=== PATIENT | male | born 1980 | race Caucasian/White ===

== ENCOUNTER 2016-11-29 12:40 | Emergency (ER) | payer OTHER ==
[~2016-11-29] VITALS: Ht 152.4 cm; Wt 170.0 kg
[2016-11-29 12:43] VITALS: Ht 152.4 cm; Wt 170.0 kg
[2016-11-29] MEDS ORDERED: LIDOCAINE 1% (MDV) 20 ML INJ SC ONE (14:00)
--- NOTE | 2016-11-29 14:23 | ERD ---
ER Documentation Chief Complaint Date/Time DATE: 11/29/16 TIME: 14:21 Chief Complaint left leg varicous vein bleeding HPI 36-year-old male, history of obesity presents with bleeding left lower leg varicose vein after he actually cut his leg against a wire. Patient states that there is leg that is coming out actively. He states that his last tetanus shot was within the last 2 years. ROS All systems reviewed and are negative except as per history of present illness. PMhx/Soc Medical and Surgical Hx: pt denies Medical Hx, pt denies Surgical Hx Hx Alcohol Use: No Hx Substance Use: No Hx Tobacco Use: No Smoking Status: Never smoker Physical Exam Vitals Vital Signs Date Time Temp Pulse Resp B/P Pulse Ox O2 Delivery O2 Flow Rate FiO2 11/29/16 12:43 98.1 82 20 154/82 99 Physical Exam General: Well-developed, well-nourished. The patient appears in no acute distress. HEENT: Head is normocephalic, atraumatic. No scleral icterus. Neck: Supple. Nontender. Lungs: Clear to auscultation. Normal air movement. Heart: Regular rate and rhythm. S1 and S2 are normal. No murmurs, gallops, or rubs. Abdomen: Nondistended. Extremities: Left lower leg has active bleeding from a varicose vein, bleeding is nonpulsatile. Neurologic: Alert and oriented 3. No focal deficits. Normal speech and gait. Skin: Normal turgor. No rash or lesions. Results 24 hrs Current Medications Medications (Trade) Dose Ordered Sig/Colin Route PRN Reason Start Time Stop Time Status Last Admin Dose Admin Lidocaine (Xylocaine 1% (Mdv) 20 ml) 20 ml ONCE ONCE SC 11/29/16 14:00 11/29/16 14:01 DC Acetaminophen/ Hydrocodone Bitart ([place] (10/325)) 1 tab ONCE ONCE PO 11/29/16 15:00 11/29/16 15:01 DC 11/29/16 15:22 Ondansetron HCl (Zofran Odt) 4 mg ONCE STAT ODT 11/29/16 14:38 11/29/16 14:39 DC 11/29/16 15:22 Procedures/MDM Varicose vein repair by me: Patient was verbally consented Location: Left lower leg Tendon/Joint/Nerves: No injury Technique: 2 figure of 8 sutures were placed, hemostasis achieved. Sutures are placed, clean dressing was applied. An Darian bandage was applied as well. We observe the patient, he did not experience any further bleeding. He was ambulatory emergency department, the wound was rechecked without any complications and he is stable for discharge. Patient's bleeding was easily controlled in the department and there is no indication of anemia. No evidence of compartment syndrome, neurologic injury, vascular injury, open joint, tendon laceration, or foreign body. Patient is appropriate for outpatient follow up. 48 hour wound check. Scar minimization instructions given. Medical decision makin-year-old male comes in with a bleeding varicose vein that was repaired with sutures. Hemostasis was achieved. Patient tolerated procedure well, was hemodynamically stable and is appropriate for outpatient management. The case was reviewed and discussed with Dr. Benton who agrees with the plan of care. Departure Diagnosis: Primary Impression: Bleeding from varicose vein Condition: MAYA Rondon PA-C Nov 29, 2016 14:23
[2016-11-29] MEDS ORDERED: ONDANSETRON (ODT) 4 MG TAB ODT STA (14:38)
[2016-11-29] MEDS ORDERED: HYDROCODONE/APAP (10/325) TAB PO ONE (15:00)
[2016-11-29] MEDS ORDERED: HYDR-906 PO (15:57)
== END 2016-11-29 16:02 | disposition home or self-care (01) ==
LOC: FTE 12:40
DX: I83.899 Varicose veins of unspecified lower extremity with other complications (principal); E66.9 Obesity, unspecified
CPT/HCPCS: 12001; Z7502; Z7610

== ENCOUNTER 2016-12-06 17:10 | Emergency (ER) | payer OTHER ==
[~2016-12-06] VITALS: Ht 175.3 cm; Wt 170.0 kg
[~2016-12-06 17:10] MED LIST: HYDR-906 PO
[2016-12-06 17:16] VITALS: Ht 175.3 cm; Wt 170.0 kg
[2016-12-06] MEDS ORDERED: SULF1TAB31 PO (18:49)
[2016-12-06] MEDS ORDERED: CEPH-443 PO (18:49)
[2016-12-06] MEDS ORDERED: IBUP800T25 PO (18:50)
--- NOTE | 2016-12-06 18:52 | ERD ---
ER Documentation Chief Complaint Date/Time DATE: 12/06/16 TIME: 18:51 Chief Complaint rupture vein, sutures placed, per wound more red now. HPI This 36-year-old male presents for recheck. 1 week ago he had a suture placed for bleeding varicose vein. May be some redness of the wound and increased pain over the last few days. ROS All systems reviewed and are negative except as per history of present illness. Medications Home Meds Active Scripts Ibuprofen* (Motrin*) 800 Mg Tab, 800 MG PO Q6, #15 TAB Prov:CLARISSA WILSON MD 12/06/16 Sulfamethoxazole/Trimethoprim* (Bactrim Ds* Tablet) 1 Each Tablet, 1 TAB PO BID for 7 Days, #14 TAB Prov:CLARISSA WILSON MD 12/06/16 Cephalexin* (Keflex*) 500 Mg Capsule, 500 MG PO QID for 7 Days, CAP Prov:CLARISSA WILSON MD 12/06/16 Hydrocodone/Acetaminophen ([place] 5-325 Tablet) 1 Each Tablet, 1 TAB PO Q6H Y for PAIN, #10 TAB Prov:MAYA WALKER PA-C 11/29/16 Allergies Allergies: Coded Allergies: No Known Allergy (Unverified , 12/06/16) PMhx/Soc Hx Alcohol Use: No Hx Substance Use: No Hx Tobacco Use: No Physical Exam Vitals Vital Signs Date Time Temp Pulse Resp B/P Pulse Ox O2 Delivery O2 Flow Rate FiO2 12/06/16 17:16 98.8 85 20 131/79 96 Physical Exam Const: []Alert, [id number]. Morbidly obese. Head: Atraumatic Eyes: Normal Conjunctiva ENT: Normal External Ears, Nose and Mouth. Neck: Full range of motion..~ No meningismus. Resp: Clear to auscultation bilaterally Cardio: Regular rate and rhythm, no murmurs Abd: Soft, non tender, non distended. Normal bowel sounds Skin: No petechiae or rashes. On the lateral aspect left calf there is a suture in place. There is some dried blood and some redness and slight oozing which is yellow and honey crusted of approximately 2 cm. There is no calf swelling or Homans sign or significant streaking or induration. Back: No midline or flank tenderness Ext: No cyanosis, or edema Neur: Awake and alert Psych: Normal Mood and Affect Results 24 hrs Current Medications Medications (Trade) Dose Ordered Sig/Colin Route PRN Reason Start Time Stop Time Status Last Admin Dose Admin Cephalexin (Keflex) 500 mg ONCE ONCE PO 12/06/16 19:00 12/06/16 19:01 Acetaminophen (Tylenol Tab) 650 mg ONCE ONCE PO 12/06/16 19:00 12/06/16 19:01 Procedures/MDM 1 suture removed which appears to be an absorbable. Patient presents for suture removal for bleeding varicose vein. There is no active bleeding. He appears to have a mild wound infection. He was given Bactrim and Keflex will be treated with Bactrim and Keflex and ibuprofen and instructions for 2 day recheck for worsening redness and recheck of infection. She will return sooner for fevers, worsening redness, new worsening symptoms or with in 2 days as directed. We will reevaluate potential additional suture removal and recheck. It is not easily visible and digging into the wound may cause bleeding so further dissection was deferred for now. There is no evidence of DVT or sepsis. Departure Diagnosis: Primary Impression: Cellulitis Site of cellulitis: extremity Site of cellulitis of extremity: lower extremity Laterality: left Qualified Code: L03.116 - Cellulitis of left lower extremity Additional Impression: Encounter for removal of sutures Condition: Stable Patient Instructions: Cellulitis, Suture Removal, No Complication Additional Instructions: Recheck in 2-3 days, sooner for fevers, worsening redness, new symptoms. CLARISSA WILSON MD Dec 06, 2016 18:52
[2016-12-06] MEDS ORDERED: CEPHALEXIN 500 MG CAP PO ONE (19:00)
[2016-12-06] MEDS ORDERED: ACETAMINOPHEN 325 MG TAB PO ONE (19:00)
[2016-12-06 20:13] VITALS: BP 131/88; PULSE 76; RESP 20
== END 2016-12-06 21:13 | disposition home or self-care (01) ==
LOC: FTE 17:10
DX: L03.116 Cellulitis of left lower limb (principal)
CPT/HCPCS: Z7502; Z7610; 99284

== ENCOUNTER 2017-01-03 07:56 | Emergency (ER) | payer OTHER ==
[~2017-01-03] VITALS: Ht 175.3 cm; Wt 172.0 kg
[~2017-01-03 07:56] MED LIST changes: +CEPH-443 PO; +IBUP800T25 PO; +SULF1TAB31 PO
[2017-01-03 07:59] VITALS: Ht 175.3 cm; Wt 172.0 kg
--- NOTE | 2017-01-03 08:19 | ERD ---
ER Documentation Chief Complaint Date/Time DATE: 01/03/17 TIME: 08:18 Chief Complaint FOR WOUND CHECK ON LT LEG HPI This 36-year-old male presents for evaluation for suture removal in the left lateral calf. He had a bleeding varicose vein sutured 2 weeks ago. There is no history of fevers, calf swelling, redness, additional symptoms. Patient is morbidly obese. ROS All systems reviewed and are negative except as per history of present illness. Medications Home Meds Active Scripts Ibuprofen* (Motrin*) 800 Mg Tab, 800 MG PO Q6, #15 TAB Prov:CLARISSA WILSON MD 12/06/16 Sulfamethoxazole/Trimethoprim* (Bactrim Ds* Tablet) 1 Each Tablet, 1 TAB PO BID for 7 Days, #14 TAB Prov:CLARISSA WILSON MD 12/06/16 Cephalexin* (Keflex*) 500 Mg Capsule, 500 MG PO QID for 7 Days, CAP Prov:CLARISSA WILSON MD 12/06/16 Hydrocodone/Acetaminophen ([place] 5-325 Tablet) 1 Each Tablet, 1 TAB PO Q6H Y for PAIN, #10 TAB Prov:MAYA WALKER PA-C 11/29/16 Allergies Allergies: Coded Allergies: No Known Allergy (Unverified , 01/03/17) PMhx/Soc Medical and Surgical Hx: pt denies Medical Hx, pt denies Surgical Hx Hx Alcohol Use: No Hx Substance Use: No Hx Tobacco Use: No Smoking Status: Never smoker Physical Exam Vitals Vital Signs Date Time Temp Pulse Resp B/P Pulse Ox O2 Delivery O2 Flow Rate FiO2 01/03/17 07:59 98.1 89 18 139/86 98 Physical Exam Const: [] Alert, not ill-appearing. Obese. Head: Atraumatic Eyes: Normal Conjunctiva ENT: Normal External Ears, Nose and Mouth. Neck: Full range of motion..~ No meningismus. Resp: Clear to auscultation bilaterally Cardio: Regular rate and rhythm, no murmurs Abd: Soft, non tender, non distended. Normal bowel sounds Skin: No petechiae or rashes Back: No midline or flank tenderness Ext: No cyanosis, or edema suture in place in the lateral left calf. No erythema, warmth, active bleeding, fluctuance. Neur: Awake and alert Psych: Normal Mood and Affect Procedures/MDM Suture removed without complications. Wound was dressed. Patient was discharged home with instructions to return for redness, fevers, new worsening symptoms, recurrent bleeding with primary care doctor. No evidence of DVT, cellulitis, abscess, additional complications due to patient's presenting complaints appreciable. Departure Diagnosis: Primary Impression: Encounter for removal of sutures Condition: Stable Patient Instructions: Suture Removal, No Complication Additional Instructions: Cheque otro vez con green doctor primario en el proximo herrera or regresa para mas o nueva simptomas. CLARISSA WILSON MD Jan 03, 2017 08:19
== END 2017-01-03 08:52 | disposition home or self-care (01) ==
LOC: FTE 07:56
DX: Z48.02 Encounter for removal of sutures (principal)
CPT/HCPCS: 99281

== ENCOUNTER 2018-08-17 17:11 | Emergency (ER) | payer SELFPAY ==
[~2018-08-17] VITALS: Ht 170.2 cm; Wt 136.0 kg
[~2018-08-17 17:11] MED LIST changes: +HYDR-4011 PO; -HYDR-906 PO; -IBUP800T25 PO; +IBUP800T48 PO
[2018-08-17 17:16] VITALS: Ht 170.2 cm; Wt 136.0 kg
[2018-08-17] MEDS ORDERED: SILVER NITRATE SWAB TOP ONE (18:30)
--- NOTE | 2018-08-17 19:15 | ERD ---
ER Documentation Chief Complaint Chief Complaint bleeding from lt leg vericose vein HPI Patient 38-year-old male presenting to ER for bleeding leg ulcer ROS All systems reviewed and are negative except as per history of present illness. Medications Home Meds Active Scripts Cephalexin* (Keflex*) 500 Mg Capsule, 500 MG PO QID for 5 Days, CAP Prov:TERI QUESADA PA-C 08/17/18 Ibuprofen* (Motrin*) 800 Mg Tab, 800 MG PO Q6, #15 TAB Prov:CLARISSA WILSON MD 12/06/16 Sulfamethoxazole/Trimethoprim* (Bactrim Ds* Tablet) 1 Each Tablet, 1 TAB PO BID for 7 Days, #14 TAB Prov:CLARISSA WILSON MD 12/06/16 Cephalexin* (Keflex*) 500 Mg Capsule, 500 MG PO QID for 7 Days, CAP Prov:CLARISSA WILSON MD 12/06/16 Hydrocodone/Acetaminophen ([place] 5-325 Tablet) 1 Each Tablet, 1 TAB PO Q6H PRN for PAIN, #10 TAB Prov:MAYA WALKER PA-C 11/29/16 Allergies Allergies: Coded Allergies: No Known Allergy (Unverified , 01/03/17) PMhx/Soc Medical and Surgical Hx: pt denies Medical Hx, pt denies Surgical Hx Hx Alcohol Use: No Hx Substance Use: No Hx Tobacco Use: No Smoking Status: Never smoker FmHx Family History: coronary disease; No diabetes, No other Physical Exam Vitals Vital Signs Date Temp Pulse Resp B/P (MAP) Pulse Ox O2 O2 Flow FiO2 Time Delivery Rate 08/17/18 97.9 81 18 133/75 99 Room Air 19:45 (94) 08/17/18 97.8 90 18 138/71 99 17:16 (93) Physical Exam Const: No acute distress Resp: Clear to auscultation bilaterally Cardio: Regular rate and rhythm, no murmurs Skin: No petechiae or rashes Ext: No cyanosis, or edema, patient has small less than 1 cm varicose vein that is actively bleeding, bleeding was controlled with direct pressure patient has good CMS Results 24 hrs Current Medications Medications Dose Sig/Colin Start Time Status Last (Trade) Ordered Route PRN Stop Time Admin Dose Reason Admin Silver 1 stick ONCE ONCE 08/17/18 DC Nitrate TOP 18:30 (Silver 08/17/18 18:31 Nitrate Swabs) Procedures/MDM ED course: Bleeding was controlled with direct pressure. Wound was irrigated thoroughly with normal saline and Betadine. Wound was anesthetized with lidocaine with epi. Patient received 4-0 nylon sutures. 3 [id number] knots were placed. Bleeding was controlled with suture placement. Patient's leg was cleaned and bandaged up. Patient was advised he needs to follow-up in 2 days for wound check and have sutures removed in 5 to 7 days. The patient was stable throughout the ED course. The patient and/or family informed of laboratory and diagnostic imaging results throughout the ED course. Procedures: Lidocaine with epi Wound interrogation 3 figure 8 sutures were placed on the left lateral leg and sterile field. 4-0 nylon sutures Medications given in ER: None Medical decision makin-year-old male presenting with active bleeding venous ulcer. Patient was seen in the ER few months ago for the same issue. Patient denies fever chills body aches. Patient controlled the bleeding with an Darian bandage prior to come to ER. The wound was inspected with no signs of erythema, swelling, cellulitis. The patient's bleeding was controlled with direct pressure and the wound was secured with 3 stitches. The patient's leg was bandaged. The patient was advised to follow-up in 2 days for wound check. Patient was advised to follow-up in 5 to 7 days for suture removal. The patient denies any dizziness lightheaded or feeling as he is going to pass out. The patient has good color to his skin. The patient is hemodynamically stable. At this time I have low suspicion for any neurovascular injury patient had good intact CMS prior to stitches and patient was assessed post suture placement and patient had no neurovascular de ficits. At this time I have low suspicion for compartment syndrome cellulitis neurovascular injury tendon or muscle injury fracture or infection. Patient was advised that he needs to follow-up for long-term care with a specialist. No tetanus was given because the patient received a tetanus shot 2 months ago. The patient was sent home with antibiotics. Patient was advised the importance of taking antibiotics and common side effects such as diarrhea and upset stomach. Patient had no questions upon discharge. The patient was advised to come back if bleeding occurs again or he experiences pain swelling discoloration or irritation to the left leg. Prescription for home: Keflex Discharge: At this time, patient is stable for discharge and outpatient management. I have instructed the patient to follow-up with his\her primary care physician in 1 to 2 days. I have discussed with the patient the possibility of needing to see a specialist for further work-up and imaging studies if symptoms persist. I have instructed the patient to promptly return to the ER for any new or worsening symptoms including increased pain, fever, nausea, vomiting, weakness or LOC. The patient and\or family expressed understanding of and agreement with this plan. All questions were answered. Home care instructions were provided. Disclaimer: Inadvertent spelling and grammatical errors are likely due to EHR\dictation software use and do not reflect on the overall quality of patient care. Also, please note that the electronic time recorded on the note does not necessarily reflect the actual time of the patient encounter. Departure Diagnosis: Primary Impression: Venous stasis ulcer Venous stasis ulcer site: calf Varicose vein presence: unspecified whether present Laterality: left Non-pressure ulcer stage: unspecified non- pressure ulcer stage Qualified Codes: I83.022 - Varicose veins of left lower extremity with ulcer of calf; L97.229 - Non-pressure chronic ulcer of left calf with unspecified severity Condition: Stable TERI QUESADA PA-C August 17, 2018 19:15
[2018-08-17] MEDS ORDERED: CEPH-443 PO (19:28)
[2018-08-17 19:45] VITALS: BP 133/75; PULSE 81; RESP 18
== END 2018-08-17 19:45 | disposition home or self-care (01) ==
LOC: FTE 17:11
DX: I83.022 Varicose veins of left lower extremity with ulcer of calf (principal); L97.229 Non-pressure chronic ulcer of left calf with unspecified severity

== ENCOUNTER 2018-08-20 08:16 | Emergency (ER) | payer SELFPAY ==
[~2018-08-20] VITALS: Wt 110.0 kg
[2018-08-20 08:18] VITALS: BP 154/85; PULSE 76; RESP 18
--- NOTE | 2018-08-20 09:13 | ERD ---
ER Documentation Chief Complaint Chief Complaint left leg wound check HPI This is a Serbian-speaking 38-year-old male with history of venous stasis ulcers who presents to the ED for wound recheck of his left lower leg laceration repair. Patient was seen here on August 17, 2018 for bleeding of his left lower leg varicose veins. 3 sutures were placed and patient was told to return today for wound recheck. Wound is healing well. No bleeding, discharge, erythema, pain, fevers or chills. No new injuries. No other complaints. He is currently on his second day of Keflex. ROS All systems reviewed and are negative except as per history of present illness. Medications Home Meds Active Scripts Cephalexin* (Keflex*) 500 Mg Capsule, 500 MG PO QID for 5 Days, CAP Prov:TERI QUESADA PA-C 08/17/18 Ibuprofen* (Motrin*) 800 Mg Tab, 800 MG PO Q6, #15 TAB Prov:CLARISSA WILSON MD 12/06/16 Sulfamethoxazole/Trimethoprim* (Bactrim Ds* Tablet) 1 Each Tablet, 1 TAB PO BID for 7 Days, #14 TAB Prov:CLARISSA WILSON MD 12/06/16 Cephalexin* (Keflex*) 500 Mg Capsule, 500 MG PO QID for 7 Days, CAP Prov:CLARISSA WILSON MD 12/06/16 Hydrocodone/Acetaminophen ([place] 5-325 Tablet) 1 Each Tablet, 1 TAB PO Q6H PRN for PAIN, #10 TAB Prov:MAYA WALKER PA-C 11/29/16 Allergies Allergies: Coded Allergies: No Known Allergy (Unverified , 01/03/17) PMhx/Soc Medical and Surgical Hx: pt denies Medical Hx, pt denies Surgical Hx Hx Alcohol Use: No Hx Substance Use: No Hx Tobacco Use: No FmHx Family History: No diabetes Physical Exam Vitals Vital Signs Date Temp Pulse Resp B/P (MAP) Pulse Ox O2 O2 Flow FiO2 Time Delivery Rate 08/20/18 98.3 76 18 154/85 99 08:18 (108) Physical Exam Const: No acute distress Head: Atraumatic Eyes: Normal Conjunctiva ENT: Normal External Ears, Nose and Mouth. Neck: Full range of motion. No meningismus. Skin: No petechiae or rashes Ext: + Well-healing 1 cm wound to left lower extremity with [address], no surrounding erythema, fluctuance, or induration. Multiple varicose veins appreciated. DP/PT pulses intact. Cap refill less than 2 seconds. Right lower extremity normal. Neur: Awake and alert Psych: Normal Mood and Affect Procedures/MDM 38-year-old male with peripheral vascular disease and varicose veins presents for wound recheck. He was seen here 3 days ago for bleeding varicose vein which was sutured with 3 nylon stitches. Wound is healing well. He has no evidence of ischemic necrosis, cellulitis, abscess, sepsis or other deep space infection. Patient was told to return in 7 days for suture removal. Strict return precautions were discussed. Blood Pressure Assessment: Patient's blood pressure was elevated (>120/80) but appears stable without evidence of hypertension emergency or urgency. The patient was counseled about the risks of hypertension and urged to pursue outpatient monitoring and therapy within a week with their primary care physician. Departure Diagnosis: Primary Impression: Venous stasis ulcer Venous stasis ulcer site: unspecified site Varicose vein presence: with varicose veins Non-pressure ulcer stage: unspecified non-pressure ulcer stage Qualified Codes: I83.009 - Varicose veins of unspecified lower extremity with ulcer of unspecified site; L97.909 - Non-pressure chronic ulcer of unspecified part of unspecified lower leg with unspecified severity Additional Impression: Encounter for wound re-check Condition: Stable Patient Instructions: Wound Check, Lac F/U (No Infection) Referrals: [facility] YOU HAVE RECEIVED A MEDICAL SCREENING EXAM AND THE RESULTS INDICATE THAT YOU DO NOT HAVE A CONDITION THAT REQUIRES URGENT TREATMENT IN THE EMERGENCY DEPARTMENT. FURTHER EVALUATION AND TREATMENT OF YOUR CONDITION CAN WAIT UNTIL YOU ARE SEEN IN YOUR DOCTORS OFFICE WITHIN THE NEXT 1-2 DAYS. IT IS YOUR RESPONSIBILITY TO MAKE AN APPOINTMENT FOR FOLOW-UP CARE. IF YOU HAVE A PRIMARY DOCTOR --you should call your primary doctor and schedule and appointment IF YOU DO NOT HAVE A PRIMARY DOCTOR YOU CAN CALL OUR PHYSICIAN REFERRAL HOTLINE AT . IF YOU CAN NOT AFFORD TO SEE A PHYSICIAN YOU CAN CHOSE FROM THE FOLLOWING [facility] INSTITUTIONS: [facility] [id number] [place] [address] [facility] [address] [place] [address] [facility] [address] [address] [facility]CIALT[facility] Additional Instructions: Return in 7 days for removal of your stitches. Monitor for any worsening redness, pain, discharge, fevers, chills. Return here sooner for any of the aforementioned reasons. GLADYS العلي PA-C Aug 20, 2018 09:13
== END 2018-08-20 09:12 | disposition home or self-care (01) ==
LOC: FTE 08:16
DX: I83.029 Varicose veins of left lower extremity with ulcer of unspecified site (principal); L97.929 Non-pressure chronic ulcer of unspecified part of left lower leg with unspecified severity
CPT/HCPCS: 99281

== ENCOUNTER 2018-08-27 15:04 | Emergency (ER) | payer SELFPAY ==
[~2018-08-27] VITALS: Ht 167.6 cm; Wt 145.0 kg
[2018-08-27 15:11] VITALS: Ht 167.6 cm; Wt 145.0 kg
--- NOTE | 2018-08-27 15:39 | ERD ---
ER Documentation Chief Complaint Chief Complaint FOR SUTURE REMOVAL ON LT LEG HPI Patient is a 38-year-old male who presents the ER for suture removal. Patient was seen here in 08-17-18 for a bleeding varicose vein. 3 sutures were placed to the affected area. Patient denies any fevers, chills, nausea, vomiting, redness or swelling to the affected site. Patient did complete course of antibiotics. ROS All systems reviewed and are negative except as per history of present illness. Medications Home Meds Active Scripts Cephalexin* (Keflex*) 500 Mg Capsule, 500 MG PO QID for 5 Days, CAP Prov:TERI QUESADA PA-C 08/17/18 Ibuprofen* (Motrin*) 800 Mg Tab, 800 MG PO Q6, #15 TAB Prov:CLARISSA WILSON MD 12/06/16 Sulfamethoxazole/Trimethoprim* (Bactrim Ds* Tablet) 1 Each Tablet, 1 TAB PO BID for 7 Days, #14 TAB Prov:CLARISSA WILSON MD 12/06/16 Cephalexin* (Keflex*) 500 Mg Capsule, 500 MG PO QID for 7 Days, CAP Prov:CLARISSA WILSON MD 12/06/16 Hydrocodone/Acetaminophen ([place] 5-325 Tablet) 1 Each Tablet, 1 TAB PO Q6H PRN for PAIN, #10 TAB Prov:MAYA WALKER PA-C 11/29/16 Allergies Allergies: Coded Allergies: No Known Allergy (Unverified , 01/03/17) PMhx/Soc Medical and Surgical Hx: pt denies Medical Hx, pt denies Surgical Hx Hx Alcohol Use: No Hx Substance Use: No Hx Tobacco Use: No Smoking Status: Never smoker FmHx Family History: No diabetes Physical Exam Vitals Vital Signs Date Temp Pulse Resp B/P (MAP) Pulse Ox O2 O2 Flow FiO2 Time Delivery Rate 08/27/18 97.8 96 18 134/65 100 15:11 (88) Physical Exam GENERAL: Well-developed, well-nourished male. Appears in no acute distress. HEAD: Normocephalic, atraumatic. EYES: Pupils are equally reactive bilaterally. EOMs grossly intact. No conjunct ival erythema. EXTREMITIES: Equal pulses bilaterally. No peripheral clubbing, cyanosis or edema. No unilateral leg swelling. NEUROLOGIC: Alert and oriented. Moving all four extremities without any difficulty. Normal speech. Steady gait. SKIN: 3 sutures noted on the lateral aspect of the patient's left leg. No surrounding erythema, warmth, streaking. Procedures/MDM Suture Removal by me: 3 Sutures removed with tweezers and scissors without incident. Wound shows no evidence of infection, foreign body, neurologic injury, vascular injury, open joint or tendon laceration. Patient to follow up PRN. Departure Diagnosis: Primary Impression: Encounter for removal of sutures Condition: Fair Patient Instructions: Staple Removal, No Complication Referrals: COMM[facility] YOU HAVE RECEIVED A MEDICAL SCREENING EXAM AND THE RESULTS INDICATE THAT YOU DO NOT HAVE A CONDITION THAT REQUIRES URGENT TREATMENT IN THE EMERGENCY DEPARTMENT. FURTHER EVALUATION AND TREATMENT OF YOUR CONDITION CAN WAIT UNTIL YOU ARE SEEN IN YOUR DOCTORS OFFICE WITHIN THE NEXT 1-2 DAYS. IT IS YOUR RESPONSIBILITY TO MAKE AN APPOINTMENT FOR FOLOW-UP CARE. IF YOU HAVE A PRIMARY DOCTOR --you should call your primary doctor and schedule an appointment IF YOU DO NOT HAVE A PRIMARY DOCTOR YOU CAN CALL OUR PHYSICIAN REFERRAL HOTLINE AT IF YOU CAN NOT AFFORD TO SEE A PHYSICIAN YOU CAN CHOSE FROM THE FOLLOWING [facility] [address] [facility]. [facility] [address] [facility]. [facility] [address] [facility]. [facility] [address] [facility] [facility] [address] [facility]. [facility]. [address] [facility]. [facility] YOU HAVE RECEIVED A MEDICAL SCREENING EXAM AND THE RESULTS INDICATE THAT YOU DO NOT HAVE A CONDITION THAT REQUIRES URGENT TREATMENT IN THE EMERGENCY DEPARTMENT. FURTHER EVALUATION AND TREATMENT OF YOUR CONDITION CAN WAIT UNTIL YOU ARE SEEN IN YOUR DOCTORS OFFICE WITHIN THE NEXT 1-2 DAYS. IT IS YOUR RESPONSIBILITY TO MAKE AN APPOINTMENT FOR FOLOW-UP CARE. IF YOU HAVE A PRIMARY DOCTOR --you should call your primary doctor and schedule and appointment IF YOU DO NOT HAVE A PRIMARY DOCTOR YOU CAN CALL OUR PHYSICIAN REFERRAL HOTLINE AT . IF YOU CAN NOT AFFORD TO SEE A PHYSICIAN YOU CAN CHOSE FROM THE FOLLOWING [facility] INSTITUTIONS: [facility] [address] [place] [address] [facility] [address] [place] [address] [facility] [address] [place] [address] Additional Instructions: Call your primary care doctor TOMORROW for an appointment during the next 1-2 days.See the doctor sooner or return here if your condition worsens before your appointment time. BRIANNA MILTON PA-C Aug 27, 2018 15:39
[2018-08-27 15:48] VITALS: BP 143/95; PULSE 100; RESP 18
== END 2018-08-27 15:49 | disposition home or self-care (01) ==
LOC: FTE 15:04
DX: Z48.02 Encounter for removal of sutures (principal)
CPT/HCPCS: 99281